=== PATIENT | female | born 1990 | race Caucasian/White ===

== ENCOUNTER → 2023-12-07 | Emergency (ER) | payer SELFPAY ==
[~2023-12-07] MED LIST: KETOROLAC 30 MG/ML INJ ONE
[2023-12-07 12:03] LABS: Absolute Lymphocytes (CBC) 1.9 K/uL (0.7-4.9); Hematocrit 31.9 % (36.0-45.0); Lymphocytes % 32.2 % (15.3-44.8); MCV 97.2 fL (80-100); MPV 9.3 fL (7.6-11.3); Platelets 186 thou/uL (152-406); RBC Red Blood Cell Count 3.28 M/uL (3.86-4.86)
[2023-12-07 12:10] LABS: Specific Gravity > 1.030 (1.005-1.030); Transitional Epithelial <5 /HPF (None Seen); Urine Bacteria None Seen /HPF (<20); Urine Bilirubin NEGATIVE (Negative); Urine Blood Negative (Negative); Urine Clarity Extremely Turbid (Clear); Urine Color Yellow (Yellow); Urine Glucose NEGATIVE (Negative); Urine Mucus 1+ /HPF (None Seen); Urine Protein 1+ (Negative); Urine RBC <5 /HPF (None Seen); Urine Urobilinogen Normal (Normal); Urine pH 6.5 (5.0-7.0)
[2023-12-07 12:12] LABS: Specific Gravity > 1.030 (1.005-1.030)
[2023-12-07 12:24] LABS: Albumin 3.3 g/dL (3.4-5.0); Bilirubin Total 0.6 mg/dL (0.2-1.0); Potassium 4.2 mEq/L (3.5-5.1)
--- NOTE | 2023-12-07 12:30 | RAD REPORT ---
EXAM DESCRIPTION: CTAbdomen Pelvis Wo Contrast - 12/07/2023 12:23 pm CLINICAL HISTORY: low back pain;Abd pain COMPARISON: No comparisons TECHNIQUE: CT of the abdomen and pelvis was performed. All CT scans are performed using dose optimization technique as appropriate and may include automated exposure control or mA/KV adjustment according to patient size. FINDINGS: Lower chest: No acute abnormality. Liver: No acute abnormality or suspicious lesions. Biliary: No biliary ductal dilatation. Stomach: No significant focal abnormality. Duodenum: No significant focal abnormality. Pancreas: No significant abnormality. Spleen: No significant abnormality. Adrenal: No suspicious lesions. Kidney/ureter: No hydronephrosis. No renal calculi. Extrarenal pelvis bilaterally. Retroperitoneum: No retroperitoneal adenopathy. Vascular: No aneurysm. Mild atherosclerosis. Bowel: No significant focal abnormality. Normal appendix. Peritoneum: Pelvic free fluid is likely physiologic. Bladder: Mild bladder wall thickening. Reproductive: No adnexal masses. Bones: No acute fracture. Other: n/a IMPRESSION: No acute intra-abdominal or pelvic finding. Pelvic free fluid is likely physiologic. Nor mal appendix. No urinary tract calculi. Mild circumferential bladder wall thickening which could repr esent cystitis.
--- NOTE | 2023-12-07 12:40 | ER ---
Nurse's Notes [facility] Name: Prakash Soriano Age: 33 yrs Sex: Female : 1990 Arrival Date: 12/07/2023 Time: 10:32 Bed 16 Private MD: Diagnosis: Low back pain, urinary tract infection Presentation: 12/07 10:53 Chief complaint: Low back pain x 3 days. Denies injury. Coronavirus screen: At this hb time, the client does not indicate any symptoms associated with coronavirus-19. Ebola Screen: No symptoms or risks identified at this time. Initial Sepsis Screen: Does the patient meet any 2 criteria? No. Patient's initial sepsis screen is negative. Does the patient have a suspected source of infection? No. Patient's initial sepsis screen is negative. Risk Assessment: Do you want to hurt yourself or someone else? Patient reports no desire to harm self or others. Onset of symptoms was December 04, 2023. 10:53 Method Of Arrival: Ambulatory hb 10:53 Acuity: DHRUV 3 hb Historical: - Allergies: 10:55 No Known Allergies; hb - Home Meds: 10:55 None [Active]; hb - PMHx: 10:55 Hypothyroidism; hb - PSHx: 10:55 None; hb - Immunization history:: Client reports having NOT received the Covid vaccine. Flu vaccine is not up to date. - Social history:: Smoking status: Patient reports the use of cigarette tobacco products, smokes one-half pack cigarettes per day. Screenin:51 [facility] ED Fall Risk Assessment (Adult) History of falling in the last 3 months, mb9 including since admission No falls in past 3 months (0 pts) Confusion or Disorientation No (0 pts) Intoxicated or Sedated No (0 pts) Impaired Gait No (0 pts) Mobility Assist Device Used No (0 pt) Altered Elimination No (0 pt) Score/Fall Risk Level 0 - 2 = Low Risk Oriented to surroundings, Maintained a safe environment, Educated pt \T\ family on fall prevention, incl call for assistance when getting out of bed. Abuse screen: Denies threats or abuse. Nutritional screening: No deficits noted. Tuberculosis screening: No symptoms or risk factors identified. Assessment: 11:50 General: Appears in no apparent distress. Behavior is calm, cooperative. Pain: mb9 Complains of pain in back Pain does not radiate. Pain currently is 8 out of 10 on a pain scale. Quality of pain is described as throbbing, Pain began 2-3 days ago. Is continuous. Neuro: Marie Agitation-Sedation Scale (RASS): 0 - Alert and Calm Level of Consciousness is awake, alert, obeys commands, Oriented to person, place, time, situation, Appropriate for age. Cardiovascular: Patient's skin is warm and dry. Respiratory: Airway is patent Respiratory effort is even, unlabored, Respiratory pattern is regular, symmetrical, Breath sounds are clear bilaterally. GI: No signs and/or symptoms were reported involving the gastrointestinal system. : Denies burning with urination, pain urinary frequency. EENT: No signs and/or symptoms were reported regarding the EENT system. Derm: Skin is pink, warm \T\ dry. Musculoskeletal: Range of motion: intact in all extremities. Vital Signs: 10:53 BP 111 / 78; Pulse 72; Resp 16; Temp 98.4; Pulse Ox 100% on R/A; Weight 60.33 kg; hb Height 5 ft. 1 in. ; Pain 8/10; 12:52 BP 108 / 74; Pulse 70; Resp 18; Pulse Ox 100% on R/A; mb9 10:53 Body Mass Index 25.13 (60.33 kg, 154.94 cm) hb 10:53 Pain Scale: Adult hb ED Course: 10:34 Patient arrived in ED. rg4 10:44 Yadira Blackmon MD is Attending Physician. sp3 10:55 Triage completed. hb 10:55 Arm band placed on. hb 11:10 Shante Levy RN is Primary Nurse. mb9 11:50 Inserted saline lock: 20 gauge in right antecubital area, using aseptic technique. mb9 11:51 Placed in gown. Bed in low position. Call light in reach. Side rails up X 1. Client mb9 placed on continuous cardiac and pulse oximetry monitoring. NIBP monitoring applied. 11:51 No provider procedures requiring assistance completed. mb9 11:51 CBC with Diff Sent. mb9 11:51 CMP Sent. mb9 11:51 Lipase Sent. mb9 11:51 Test, Urine Sent. mb9 11:51 Urinalysis w/ reflexes Sent. mb9 12:25 CT Abd/Pelvis - Without Contrast In Process Unspecified. EDMS 12:52 IV discontinued, intact, bleeding controlled, No redness/swelling at site. Pressure mb9 dressing applied. Administered Medications: :51 Drug: Ketorolac IVP 30 mg IVP once Route: IVP; Site: right antecubital; mb9 12:52 Follow up: Response: No adverse reaction mb9 Medication: 11:51 VIS not applicable for this client. mb9 Outcome: 12:39 Discharge ordered by . sp3 12:52 Discharged to home ambulatory, mb9 12:52 Condition: stable 12:52 Discharge instructions given to patient, Instructed on discharge instructions, follow up and referral plans. Demonstrated understanding of instructions, follow-up care, medications, Prescriptions given X 1, 12:53 Patient left the ED. mb9 Signatures: Dispatcher [employer] EDMS Yovana Bragg, RN RN Zuri Aparicio rg4 Yadira Blackmon MD MD sp3 Shante Levy RN RN mb9
--- NOTE | 2023-12-07 12:40 | EDPHYS ---
Physician Documentation [facility] Name: Prakash Soriano Age: 33 yrs Sex: Female : 1990 Arrival Date: 12/07/2023 Time: 10:32 Bed 16 Private MD: ED Physician Yadira Blackmon HPI: 12/07 11:18 This 33 yrs old Female presents to ER via Ambulatory with complaints of Low Back Pain. sp3 11:18 33-year-old female with history of hypothyroidism presents with lower back pain that sp3 started 3 days ago insidiously in nature. She denies any sudden event, trauma or lifting. She also states that her pain is worse after she has a bowel movement. She denies any dysuria, gross hematuria, CLINICAL SAFETY SPECIALIST symptoms or any other symptoms at this time. On review of systems, she denies headache, fever, URI symptoms, cough, chest pain, shortness of breath, abdominal pain, nausea, vomiting, diarrhea, bleeding, rash, known sick contacts, travel history, or any other signs or symptoms on ROS at this time.. Historical: - Allergies: 10:55 No Known Allergies; hb - Home Meds: 10:55 None [Active]; hb - PMHx: 10:55 Hypothyroidism; hb - PSHx: 10:55 None; hb - Immunization history:: Client reports having NOT received the Covid vaccine. Flu vaccine is not up to date. - Social history:: Smoking status: Patient reports the use of cigarette tobacco products, smokes one-half pack cigarettes per day. ROS: 11:19 Constitutional: Negative for fever, chills, and weight loss, Eyes: Negative for injury, sp3 pain, redness, and discharge, ENT: Negative for injury, pain, and discharge, Neck: Negative for injury, pain, and swelling, Cardiovascular: Negative for chest pain, palpitations, and edema, Respiratory: Negative for shortness of breath, cough, wheezing, and pleuritic chest pain, Abdomen/GI: Negative for abdominal pain, nausea, vomiting, diarrhea, and constipation, : Negative for injury, bleeding, discharge, and swelling, MS/Extremity: Negative for injury and deformity, Skin: Negative for injury, rash, and discoloration, Neuro: Negative for headache, weakness, numbness, tingling, and seizure, Psych: Negative for depression, anxiety, suicide ideation, homicidal ideation, and hallucinations, Allergy/Immunology: Negative for hives, rash, and allergies, Endocrine: Negative for neck swelling, polydipsia, polyuria, polyphagia, and marked weight changes, Hematologic/Lymphatic: Negative for swollen nodes, abnormal bleeding, and unusual bruising, 11:19 All other systems are negative, Exam: 11:19 Constitutional: This is a well developed, well nourished patient who is awake, alert, sp3 and in no acute distress. Head/Face: Normocephalic, atraumatic. Eyes: Pupils equal round and reactive to light, extra-ocular motions intact. Lids and lashes normal. Conjunctiva and sclera are non-icteric and not injected. Cornea within normal limits. Periorbital areas with no swelling, redness, or edema. ENT: Nares patent. No nasal discharge, no septal abnormalities noted. External auditory canals are clear. Oropharynx with no redness, swelling, or masses, exudates, or evidence of obstruction, uvula midline. Mucous membranes moist. Neck: Trachea midline, no thyromegaly or masses palpated, and no cervical lymphadenopathy. Supple, full range of motion without nuchal rigidity, or vertebral point tenderness. No Meningismus. Chest/axilla: Normal chest wall appearance and motion. Nontender with no deformity. No lesions are appreciated. Cardiovascular: Regular rate and rhythm with a normal S1 and S2. No gallops, murmurs, or rubs. Normal PMI, no JVD. No pulse deficits. Respiratory: Lungs have equal breath sounds bilaterally, clear to auscultation and percussion. No rales, rhonchi or wheezes noted. No increased work of breathing, no retractions or nasal flaring. Abdomen/GI: Soft, non-tender, with normal bowel sounds. No distension or tympany. No guarding or rebound. No evidence of tenderness throughout. Skin: Warm, dry with normal turgor. Normal color with no rashes, no lesions, and no evidence of cellulitis. MS/ Extremity: Pulses equal, no cyanosis. Neurovascular intact. Full, normal range of motion. Neuro: Awake and alert, GCS 15, oriented to person, place, time, and situation. Cranial nerves II-XII grossly intact. Motor strength 5/5 in all extremities. Sensory grossly intact. Cerebellar exam normal. Normal gait. Psych: Awake, alert, with orientation to person, place and time. Behavior, mood, and affect are within normal limits. 11:19 Back: Mild pain to palpation in lower back musculature. Full range of motion is noted. No CVA tenderness. No anterior abdominal pain., Vital Signs: 10:53 BP 111 / 78; Pulse 72; Resp 16; Temp 98.4; Pulse Ox 100% on R/A; Weight 60.33 kg; hb Height 5 ft. 1 in. ; Pain 8/10; 12:52 BP 108 / 74; Pulse 70; Resp 18; Pulse Ox 100% on R/A; mb9 10:53 Body Mass Index 25.13 (60.33 kg, 154.94 cm) hb 10:53 Pain Scale: Adult hb MDM: 10:58 Patient medically screened. sp3 11:20 Data reviewed: vital signs, nurses notes, lab test result(s), radiologic studies. ED sp3 course: 33-year-old with low back pain. Differential diagnosis includes musculoskeletal pain, lumbar strain, kidney stone, UTI/pyelonephritis spectrum, functional abdominal pain radiating to the back, constipation, other GI pathology, among others. Workup will include urinalysis, test, laboratory values, CT scan of the abdomen pelvis kidney stone protocol we will treat with ketorolac IV for now. Disposition pending workup and patient course.. 12:38 ED course: Patient's laboratory values and CT scan are consistent with cystitis. UA sp3 does not show any white cells however the bladder wall thickening and clinical suspicion will lead us to treat. Will discharge patient home on Bactrim DS for 5 days.. 12/07 10:56 Order name: CBC with Diff; Complete Time: 12:38 sp3 12/07 10:56 Order name: CMP; Complete Time: 12:38 sp3 12/07 10:56 Order name: Lipase; Complete Time: 12:38 sp3 12/07 10:56 Order name: Test, Urine; Complete Time: 12:38 sp3 12/07 10:56 Order name: Urinalysis w/ reflexes; Complete Time: 12:38 sp3 12/07 10:56 Order name: CT Abd/Pelvis - Without Contrast; Complete Time: 12:38 sp3 12/07 10:56 Order name: IV Saline Lock; Complete Time: 11:51 sp3 12/07 10:56 Order name: Labs collected and sent; Complete Time: 11:51 sp3 Administered Medications: 11:51 Drug: Ketorolac IVP 30 mg IVP once Route: IVP; Site: right antecubital; mb9 12:52 Follow up: Response: No adverse reaction mb9 Disposition Summary: 12/07/23 12:39 Discharge Ordered Notes: Location: Home sp3 Condition: Stable sp3 Diagnosis - Low back pain, urinary tract infection sp3 Followup: sp3 - With: Private Physician - When: Upon discharge from the Emergency Department - Reason: Continuance of care Discharge Instructions: - Discharge Summary Sheet sp3 - Urinary Tract Infection, Adult sp3 Forms: - Medication Reconciliation Form sp3 - Thank You Letter sp3 - Antibiotic Education sp3 - Prescription Opioid Use sp3 - Patient Portal Instructions sp3 - Leadership Thank You Letter sp3 Prescriptions: - Bactrim DS 800-160 mg Oral tablet - take 1 tablet ORAL route every 12 hours for 5 days; 10 tablet; Refills: 0, sp3 Product Selection Permitted Signatures: Dispatcher [employer] Yovana Barahona, RN RN Yadira Blackmon MD MD sp3 Shante Levy RN RN mb9
[2023-12-07 15:05] VITALS: BP 108/74; TEMP 98.4; O2SAT 100
== END ==
LOC: ER 10:32
DX: N39.0 Urinary tract infection, site not specified (principal)
CPT/HCPCS: 36415; 74176; 80053; 81001; 81025; 83690; 85025; 96374; 99284